=== PATIENT | male | born 1995 | race Caucasian/White ===

== ENCOUNTER 2017-02-22 14:57 | Emergency (ER) | payer BC, OTHER ==
[~2017-02-22] VITALS: Ht 182.9 cm; Wt 77.9 kg
[2017-02-22 15:03] VITALS: BP 166/94; TEMP 36.8; Ht 182.9 cm; Wt 77.9 kg
[2017-02-22] MEDS ORDERED: IBUP-1050 PO (15:14)
--- NOTE | 2017-02-22 15:47 | EMERGENCY ROOM VISIT NOTE ---
ED Visit Note First contact with patient: 15:14 CHIEF COMPLAINT: Hand injury HISTORY OF PRESENT ILLNESS: This 21-year-old male patient presented to the emergency department ambulatory after they injured the right hand last night. The patient reports that he punched a wall last night, causing an injury to his right hand. The patient rates the pain as sharp and 6/10. He has been taking Tylenol and ibuprofen with relief of the pain. The patient denies any numbness or tingling. He is able to move all of his fingers without difficulty. The patient does not have injuries to the wrist. The patient has not had a previous fracture to this hand. The patient was seen at [facility] and sent here for possible orthopedic consultation. REVIEW OF SYSTEMS: A 6 system review of systems was completed with positives and pertinent negatives in the HPI. ALLERGIES: No known drug allergies MEDICATIONS: No chronic medications PMH: No significant past medical history. SOCIAL HISTORY: The patient is a [employer] student and lives with roommates. Nonsmoker. PHYSICAL EXAM: Vital Signs: Reviewed Nurse's notes, vital signs stable. GENERAL : This is a 21-year-old male, in no acute distress, but appears to be in pain, well-developed, well-nourished. MUSCULOSKELETAL: There is no deformity of the right hand. There is moderate swelling over the area of the fourth and fifth metacarpals. There is tenderness over the fourth and fifth metacarpals. There is no thenar or hypothenar eminence atrophy. Normal thumb opposition to all fingers. Olive Picker strength 5/5. There is no laceration. Capillary refill less than 2 seconds. No tenderness of the fingers or wrist. Full range of motion of the wrist. No snuff box tenderness. Radial pulse 2+. NEURO: Alert and oriented to person, place, and time. Normal sensation to light and sharp touch. EMERGENCY DEPARTMENT COURSE: I examined the patient. X-rays from [facility] were reviewed by myself and do reveal moderately displaced, slightly angulated fractures of the mid shaft of the fourth and fifth metacarpals. There is no evidence of compartment syndrome. There is no neurovascular compromise. I do not feel that the patient needs emergent orthopedic consultation. He was placed in an Ortho-Glass ulnar gutter splint by the ED senior engineering technician under my supervision. Neurovascular status was reassessed and was intact. The patient was given information for orthopedic follow-up. He declined prescription analgesics. Compartment syndrome warning signs were discussed with the patient. He verbalized understanding of my assessment and treatment plan and was discharged home in good condition. DIAGNOSIS: Fourth and fifth metacarpal fractures Current/Historical Medications Scheduled Ibuprofen (Advil), 800 MG PO DAILY Allergies Coded Allergies: No Known Allergies (Unverified , 02/22/17) Vital Signs Date Time Temp Pulse Resp B/P Pulse Ox O2 Delivery O2 Flow Rate FiO2 02/22/17 16:05 80 18 97 Room Air 02/22/17 15:03 36.8 93 22 166/94 95 Room Air Departure Information Impression Primary Impression: Fracture of fifth metacarpal bone Additional Impression: Fracture of fourth metacarpal bone Dispostion Home / Self-Care Condition GOOD Referrals No Doctor, Assigned (PCP) Bogdan Mg M.D. Patient Instructions ED Compartment Syndrome At Risk For, ED Fx Mariza Umanzor [facility] Additional Instructions You have been treated in the Emergency Department for a hand fracture. For pain control, you can use the following [id number] medicines (if >12 yo): - Regular strength (325mg/tab) Tylenol (acetaminophen) 2 tabs every 4-6 hours as needed. Do not exceed 12 tablets in a 24 hour period. Avoid taking more than 4 grams (4000 mg) of Tylenol per day. This includes any other sources of acetaminophen you may take on a regular basis. - Regular strength (200 mg/tab) Advil (ibuprofen) 1-2 tabs every 4-6 hours as needed. Do not exceed a dose of 3200 mg per day. If this is a recent injury (<24 hrs), ice can be applied to the area of pain for the first 3 days to help decrease pain and inflammation. You have been provided the number for an Orthopaedic Surgeon. You should call this number as soon as possible to establish a follow-up visit from today's Emergency Department visit. Keep the splint in place until evaluated by orthopedics. Do NOT get the splint wet. Return to the Emergency Department if your current symptoms worsen despite treatment course outlined above, or if you develop any of the following symptoms : intractable pain despite aforementioned treatment course or new onset of numbness or tingling of the fingers. Problem Qualifiers Primary Impression: Fracture of fifth metacarpal bone Encounter type: initial encounter Fracture type: closed Metacarpal location : shaft Fracture alignment: displaced Laterality: right Qualified Codes: S62.326A - Displaced fracture of shaft of fifth metacarpal bone, right hand, initial encounter for closed fracture Additional Impression: Fracture of fourth metacarpal bone Encounter type: initial encounter Fracture type: closed Metacarpal location : shaft Fracture alignment: displaced Laterality: right Qualified Codes: S62.324A - Displaced fracture of shaft of fourth metacarpal bone, right hand, initial encounter for closed fracture
[2017-02-22 16:05] VITALS: PULSE 80; O2SAT 97
== END 2017-02-22 16:05 | disposition home or self-care (01) ==
LOC: C.EDB 14:59 → C.EDD 16:05
DX: S62.326A Displaced fracture of shaft of fifth metacarpal bone, right hand, initial encounter for closed fracture (principal); S62.324A Displaced fracture of shaft of fourth metacarpal bone, right hand, initial encounter for closed fracture; W22.8XXA Striking against or struck by other objects, initial encounter